=== PATIENT | male | born 1980 | race African-American/Black ===

== ENCOUNTER 2017-09-14 08:57 | Emergency (ER) | payer MEDICARE, MEDICAID ==
[~2017-09-14] VITALS: Ht 167.6 cm; Wt 82.0 kg
[2017-09-14 09:02] VITALS: BP 128/85
[2017-09-14] MEDS ORDERED: [UNRECOGNIZED DRUG - OTHER] PO (09:30)
[2017-09-14] MEDS ORDERED: LEVE750T37 PO (09:30)
[2017-09-14 09:54] LABS: RAPID INFLUENZA A Negative (Negative); RAPID INFLUENZA B Negative (Negative)
[2017-09-14] MEDS ORDERED: ALBUTEROL/IPRATROPIUM 2.5MG/0.5MG, 3 ML NPPB ONE (10:00)
[2017-09-14] MEDS ORDERED: ALBUTEROL/IPRATROPIUM 2.5MG/0.5MG, 3 ML ONE (10:02)
== END 2017-09-14 10:26 | disposition home or self-care (01) ==
LOC: ED 09:25
DX: J20.8 Acute bronchitis due to other specified organisms (principal); B97.89 Other viral agents as the cause of diseases classified elsewhere
CPT/HCPCS: 71046; 87400; 94640; 99285; J7620

== ENCOUNTER 2020-08-09 15:00 | Emergency (ER) | payer MEDICAID, MEDICARE ==
[~2020-08-09] VITALS: Ht 167.6 cm; Wt 80.0 kg
[~2020-08-09 15:00] MED LIST: LEVE750T37 PO; [UNRECOGNIZED DRUG - OTHER] PO
[2020-08-09 15:05] VITALS: BP 124/89
== END 2020-08-09 16:03 ==
LOC: ED 15:10
DX: S80.01XA Contusion of right knee, initial encounter (principal); X58.XXXA Exposure to other specified factors, initial encounter; Y93.89 Activity, other specified; Y92.89 Other specified places as the place of occurrence of the external cause; Y99.8 Other external cause status
CPT/HCPCS: 99281

== ENCOUNTER 2021-04-10 14:22 | Emergency (ER) | payer MEDICAID, OTHER ==
--- NOTE | 2021-04-10 14:38 | NUR ---
PT BIB [facility]. PT STARTED HAVING A SHARP CP THAT MOVES DOWN LEFT ARM STARTING ABOUT AN HOUR AGO. WAS GIVEN [address] [employer]. PT HAZ HZ OF SZ BUT REFUSED HIS SZ MEDS THIS MORNING AT [facility]. PT TESTED FOR COVID UPON ARRIVAL TO [facility] - PENDING. PT RESTING IN [facility]. EKG COMPLETE. ACCOMPANIED BY .
[2021-04-10] MEDS ORDERED: PLEASE ENTER HEIGHT AND WEIGHT MC SCH (15:30)
[2021-04-10] MEDS ORDERED: SODIUM CHLORIDE FLUSH 10ML SYR IVF ONE (15:30)
[2021-04-10] MEDS ORDERED: LEVETIRACETAM 1,000 MG in SODIUM CHLORIDE 0.9% 100 ML IV ONE (15:30)
[2021-04-10 15:32] VITALS: BP 139/96
[2021-04-10 15:37] LABS: BASOPHILS % (AUTO) 1 % (0-1); EOSINOPHILS % (AUTO) 2 % (1-7); LYMPHOCYTES % (AUTO) 35 % (22-44); MEAN CORPUSCULAR HEMOGLOBIN 26.9 pg (27.5-34.5); MEAN CORPUSCULAR HGB CONC 32.9 g/dL (33.2-36.2); MONOCYTES % (AUTO) 6 % (2-9); NEUTROPHILS % (AUTO) 57 % (42-75); PLATELET COUNT 431 x10^3/uL (130-400); RED BLOOD COUNT 5.33 x10^6/uL (4.38-5.82); RED CELL DISTRIBUTION WIDTH 14.5 % (9.4-14.8)
[2021-04-10 15:45] LABS: ALBUMIN 3.1 g/dL (3.4-5.0); ANION GAP 5 mmol/L (5-15); CALCIUM 8.6 mg/dL (8.5-10.1); CHLORIDE 108 mmol/L (98-107)
== END 2021-04-10 17:30 | disposition home or self-care (01) ==
LOC: ED 15:41
DX: G40.309 Generalized idiopathic epilepsy and epileptic syndromes, not intractable, without status epilepticus (principal); R07.89 Other chest pain; F17.210 Nicotine dependence, cigarettes, uncomplicated
CPT/HCPCS: 36415; 71045; 80048; 82040; 85025; 93005; 96374; 99285; J1953; 96365